=== PATIENT | male | born 1960 | race Two or more races ===

== ENCOUNTER 2018-06-20 14:50 | Outpatient (CLI) | payer OTHER | END 2018-06-20 14:58 | disposition home or self-care (01) | LOC: RAD 501 14:50 | DX: M54.5 Low back pain (principal) ==

== ENCOUNTER 2023-01-18 07:16 | Day surgery (SDC) | payer OTHER ==
[~2023-01-18] VITALS: Ht 180.3 cm; Wt 133.8 kg
[~2023-01-18 07:16] MED LIST: COZAAR50 MG PO; TAMS0.4C PO
[2023-01-18] MEDS ORDERED: URETRON D-S TAB1 TAB PO (12:56)
[2023-01-18] MEDS ORDERED: PERCOCET 5-3251 EACH PO (12:56)
[2023-01-18] MEDS ORDERED: CEFUROXIME500 MG PO (13:00)
== END 2023-01-18 20:50 | disposition home or self-care (01) ==
LOC: CIR.AMB 07:16
PROVIDERS: ATTEND Surgery
DX: N20.1 Calculus of ureter (principal); N40.0 Benign prostatic hyperplasia without lower urinary tract symptoms; Z20.822 Contact with and (suspected) exposure to COVID-19; I10 Essential (primary) hypertension

== ENCOUNTER 2023-08-04 07:08 | Inpatient (IN) | payer OTHER ==
[~2023-08-04] VITALS: Ht 180.3 cm; Wt 136.1 kg
[~2023-08-04 07:08] MED LIST changes: +CEFUROXIME500 MG PO; +PERCOCET 5-3251 EACH PO; +URETRON D-S TAB1 TAB PO
[2023-08-04 09:21] LABS: HEMATOCRIT 47.8 % (39.0-48.0); HEMOGLOBIN 16.4 g/dL (13-16.00); MEAN CELL VOLUME 88.9 fL (80.0-100.00); MEAN CORPUSCULAR HEMOGLOBIN 30.6 pg (27.00-32.0); MEAN CORPUSCULAR HGB CONC 34.4 g/dl (32.0-36.0); RED BLOOD COUNT 5.38 M/uL (4.00-6.00); RED CELL DISTRIBUTION WIDTH 13.1 % (11.5-14.5)
[2023-08-04 09:29] LABS: INR 1.04; PARTIAL THROMBOPLASTIN TIME 30.8 SECONDS (22.0-34.0); PROTHROMBIN TIME 10.9 SECONDS (9.0-11.5)
[2023-08-04 09:33] LABS: CALCIUM 9.5 mg/dL (8.5-10.1); CREATININE SERUM 0.87 mg/dL (0.70-1.30); GFR 88.06; POTASSIUM 4.32 mEq/L (3.5-5.1)
[2023-08-04 09:51] LABS: URINE APPEARANCE Clear; URINE BILIRRUBIN Negative (NEGATIVE); URINE BLOOD Trace; URINE COLOR Yellow; URINE GLUCOSE Negative (NEGATIVE); URINE LEUKOCYTE Trace; URINE NITRATE Negative; URINE PROTEIN Negative (NEGATIVE)
[2023-08-04 09:53] LABS: URINE BACTERIA 8.8 uL (0.0-1933); URINE EPITHELIAL CELLS 7.4 uL (0.0-38.8); URINE RBC 3.3 uL (0.0-20.8); URINE WBC 25.1 uL (0.0-23.2)
[2023-08-04 10:02] LABS: PLATELET COUNT 255 K/uL (150-450)
[2023-08-11 06:42] LABS: HEMATOCRIT 41.1 % (39.0-48.0); HEMOGLOBIN 14.4 g/dL (13-16.00); MEAN CELL VOLUME 88.6 fL (80.0-100.00); MEAN CORPUSCULAR HEMOGLOBIN 31.1 pg (27.00-32.0); MEAN CORPUSCULAR HGB CONC 35.1 g/dl (32.0-36.0); PLATELET COUNT 226 K/uL (150-450); RED BLOOD COUNT 4.64 M/uL (4.00-6.00); RED CELL DISTRIBUTION WIDTH 12.9 % (11.5-14.5)
[2023-08-11 07:15] LABS: ALBUMIN 2.9 gm/dL (3.4-5.0); CALCIUM 8.5 mg/dL (8.5-10.1); CREATININE SERUM 0.77 mg/dL (0.70-1.30); GFR 101.39; PHOSPHOROUS 2.7 mg/dL (2.5-4.9); POTASSIUM 3.99 mEq/L (3.5-5.1)
== END 2023-08-11 09:53 | disposition home or self-care (01) | DRG 708 ==
LOC: SURH 08-10 05:35 → O/R 08-10 05:35 → SURG 08-10 07:15 → SURH 08-10 12:12
PROVIDERS: ADMIT Urology; ATTEND Urology
PROC: 8E0W0CZ Robotic Assisted Procedure of Trunk Region, Open Approach (ICD-10-PCS; 2023-08-10)
PROC: 0VT04ZZ Resection of Prostate, Percutaneous Endoscopic Approach (ICD-10-PCS; principal; 2023-08-10 07:15)
DX: N40.1 Benign prostatic hyperplasia with lower urinary tract symptoms (principal); Z20.822 Contact with and (suspected) exposure to COVID-19
CPT/HCPCS: 55867; S2900

== ENCOUNTER 2025-06-18 10:40 | Outpatient (CLI) | payer OTHER | END 2025-06-18 10:53 | disposition home or self-care (01) | LOC: SONOGRAMA 10:40 | PROVIDERS: ATTEND Physical Medicine & Rehabilitation | DX: M25.522 Pain in left elbow (principal) ==